=== PATIENT | male | born 1980 | race Caucasian/White ===

== ENCOUNTER 2020-01-19 00:58 | Observation (INO) | payer MEDICAID, SELFPAY ==
[2020-01-19] VITALS (18 sets, daily range): BP systolic 126–154; BP diastolic 63–89; PULSE 75–109; RESP 16–32; TEMP 36.4–37.1; O2SAT 94–99; BMI 71.8; BMI 274.6; BMI 73.7
--- NOTE | 2020-01-19 01:20 | ED.VIS.GEN ---
History of Present Illness Chief Complaint: Lower Extremity Injury Informant: Patient Onset: Days - 1-2 Context: Gradual Onset Timing: Continuous Quality: swollen, red Location: LLE Current Severity: Severe Maximum Severity: Severe Worsened by: nothing Relieved by: nothing Associated Symptoms: fever 104 2d ago. drainage of pus from buttock. no pain. Narrative: Patient has a history of lymphedema, thinks he has cellulitis in his left leg, has had this before and needed IV antibiotics. Called primary doctor's office yesterday and was prescribed clindamycin over the phone without being seen, has had 2 doses, but redness and swelling continue to worsen and spread up the leg, so they present out of concern for the need of IV antibiotics. Did have a fever once but none since then 2 days ago. - Past Medical History (1) Lymphedema Status: Chronic Past Medical History - Allergies and Home Meds Allergies/Adverse Reactions: Allergies Penicillins [PCN] Allergy (Verified 01/19/20 01:03) Rash morphine Adverse Reaction (Verified 01/19/20 01:03) PT UNSURE OF REACTION Primary Care Physician: Rojelio Grady MD [Primary Care Provider] - Lives: Spouse/ Significant Other Review of Systems General: Reports: Fever - resolved; see HPI. Denies: Chills, Sweats Eyes: Denies: Visual changes - bilaterally, Diplopia ENT: Denies: Rhinorrhea, Sore throat Cardiovascular: Denies: Chest pain, Palpitations Respiratory: Denies: Dyspnea, Cough, Dyspnea on exertion Gastrointestinal: Denies: Abdominal pain, Nausea, Vomiting, Diarrhea, Melena, Hematochezia Genitourinary: Denies: Dysuria, Hematuria, Frequency Musculoskeletal: Reports: Swelling. Denies: Back pain, Extremity Pain Skin: Reports: Rash, Wounds Neurological: Denies: Headache, Weakness, Numbness Physical Exam Vital Signs/Narrative: Vital Signs Temp Pulse Resp BP Pulse Ox 01/19/20 00:59 97.6 F L 106 H 32 H 139/77 H 98 Inital Vital Signs reviewed: Yes General: Well nourished, Well developed, Obese - morbidly, No Acute Distress Head: Normocephalic, Atraumatic Eyes: Perrl, EOMI ENT: Moist mucous membranes, No rhinorrhea Neck: Supple, Nontender Cardiovascular: Regular rate, Regular rhythm, No murmurs Respiratory: No distress, CTA bilaterally, Chest nontender Abdomen: Soft, Nontender, Nondistended, Normal bowel sounds Back: Nontender, Normal Inspection - Except for punctate area at cleft of upper buttocks where there is a scant amount of purulent drainage expressible. No tenderness or erythema. Extremities: Tenderness - Throughout erythematous areas left lower extremity, relatively mild, Edema - Both lower extremities, worse on the left Skin: Normal color, Rash - Diffuse edema with warm blanching erythema throughout left lower extremity, worse in the lower leg than in the thigh but present there to, with tenderness in the calf superficially. Neurological: Alert, Oriented x3, Cranial nerves II-XII grossly intact, Normal Strength, Normal Sensation, Normal Gait Psychological: Normal affect, Normal Mood Diagnostic/Tx/Re-eval 01/19/20 01:26 Xray Tibia [Tibia & Fibula 2 Views] [RAD] Stat --on my interpretation (ED physician), no sign of subcutaneous emphysema or bony abnormality. Laboratory Results 01/19/20 01/19/20 01/19/20 02:00 02:00 02:00 WBC 12.8 H RBC 4.29 L Hgb 13.1 Hct 38.3 L MCV 89.3 MCH 30.5 MCHC 34.2 RDW Std Deviation 46.3 H RDW Coeff of Dionna 14.3 Plt Count 220 MPV 9.7 Immature Gran % (Auto) 1.000 H Neut % (Auto) 73.5 H Lymph % (Auto) 18.0 L [place] % (Auto) 6.2 Eos % (Auto) 0.9 Baso % (Auto) 0.4 Absolute Neuts (auto) 9.4 H Absolute Lymphs (auto) 2.31 Nucleated RBC % 0 Sodium 135 L Potassium 3.1 L Chloride 98 Carbon Dioxide 32.0 Anion Gap 5 BUN 9 Creatinine 0.81 Estim Creat Clear Calc 150.32 Est GFR (MDRD) Af Amer 136 Est GFR (MDRD) Non-Af 112 BUN/Creatinine Ratio 11.1 Glucose 171 H Lactic Acid 1.9 Calcium 8.7 - Medical Decision Making Clinically patient is not septic, although he meets criteria because of vital signs initially. However the patient is morbidly obese, and walked up the hill prior to getting triaged and vital signs. These were repeated and improved, the only ones of her abnormal were his heart rate and respiratory rate. He does not feel dyspneic. His lactate is within normal limits. Potassium is a little low, he was ordered some replacement. I believe he will benefit from admission for IV antibiotics, technically has not failed outpatient therapy since he has only taken a couple doses of clindamycin, however the cellulitis is getting worse fairly quickly, on reexamination it is not necessarily worse than it was on the initial evaluation, there is no subcutaneous emphysema clinically or subcutaneous air visible on x-ray, he has full range of motion of all joints of the left lower extremity, all compartments are soft, and I do not think he has necrotizing fasciitis. Discussed with hospitalist. ED Disposition - Plan for ED Patient: Disposition: Acute Care Hospital [facility] Diagnosis: Cellulitis of left lower extremity, Lymphedema, Abscess of lower back, Sepsis, Hypokalemia Referrals: Rojelio Grady MD [Primary Care Provider] -
--- NOTE | 2020-01-19 01:26 | RAD_ITS ---
STUDY: X-RAY - LEFT TIBIA AND FIBULA REASON FOR EXAM: Male, 39 years old. C/O PAIN TO LLE, EDEMA WORSENING AND CELLULITIS TECHNIQUE: 4 view(s) of the tibia and fibula were obtained. COMPARISON: None. FINDINGS: Normal visualized tibia. Normal visualized fibula. There is nonspecific soft tissue swelling. RAD/Tibia & Fibula 2 Views IMPRESSION: No demonstrated fracture, dislocation, or destructive osseous lesion. Electronically Signed: Morteza Hugo MD at 3:02 EDT , Service support ,
[2020-01-19 02:09] LABS: Absolute Lymphocyte Count 2.31 X10^3/uL (0.83-4.51); Absolute Neutrophil Count 9.4 X10^3/uL (2.0-7.7); Basophil# 0.05 X10^3/uL; Basophil% 0.4 % (0-1); Eosinophil# 0.11 X10^3/uL; Eosinophils% 0.9 % (0-5); Hematocrit 38.3 % (40-54); Hemoglobin 13.1 g/dL (13.0-16.5); Lymphocyte # 2.31 X10^3/ul (4.0); Mean Corp Hgb Conc 34.2 g/dL (32-36); Mean Corpuscular Hgb 30.5 pg (27.0-32.0); Mean Corpuscular Volume 89.3 fL (80-94); Mean Platelet Vol. 9.7 fl (6.2-12.0); Monocyte% 6.2 % (0-10); NRBC Flagged by Analyzer 0 % (0-5); Neutrophil # 9.44 X10^3/uL (2.7-7.7); Neutrophil % 73.5 % (47-70); Platelet Count 220 K/mm3 (150-450); RBC Distribution Width CV 14.3 % (11.6-14.6); RBC Distribution Width SD 46.3 fl (35.1-43.9); Red Blood Count 4.29 M/mm3 (4.6-6.2); White Blood Count 12.8 K/mm3 (4.4-11.0)
[2020-01-19 02:22] LABS: Anion Gap 5 (5-15); BUN 9 mg/dL (7-18); BUN/Creat Ratio 11.1 RATIO (10-20); Calcium,Total 8.7 mg/dL (8.5-10.1); Chloride 98 mmol/L (98-107); Creatinine, Serum 0.81 mg/dL (0.70-1.30); EST Glomerular Filtration Rate 112 mL/min (>60); Est Glom Filt Rate - Afr Amer 136 mL/min (>60); Estimated Creatinine Clearance 150.32 ml/min; Glucose 171 mg/dL (74-106); Potassium 3.1 mmol/L (3.5-5.1); Sodium Level 135 mmol/L (136-145)
[2020-01-19 02:31] LABS: Lactic Acid 1.9 mmol/L (0.4-1.9)
--- NOTE | 2020-01-19 02:40 | HP.PCM_ITS ---
History of Present Illness Date of Admission: 01/19/20 Chief Complaint: redness, pain and swelling of LLE The patient is a 39 year old M with a PMH of super morbid obesity and hypertension as well as bipolar disorder. He was admitted through the ED on 01/19/2020 with a complaint of left lower extremity swelling, redness and pain which has been going on for about a week. 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 He noticed that his leg was getting red and more swollen was also very tender. He also had an associated fever which peaked at 104 Fahrenheit. He went to see his PCP 2 days ago and was started on oral clindamycin. He has taken medication for 2 days. However symptoms have not improved so he decided to come into the ED today. He admits to previous episodes of cellulitis similar to this. He denies any shortness of breath, chest pain, nausea vomiting and has has not had any fever since his temperature spiked to 104 Fahrenheit 2 days ago. In the ED, vitals showed temperature of 98.7 Fahrenheit with pulse rate of 106 which trended down to 87 and respiratory rate of 24. Blood pressure is 135/77. X-ray of the left lower extremity showed no demonstrated fracture, dislocation or destructive osseous lesion. He has been admitted to be managed for sepsis due to cellulitis of the left lower extremity. [] Past Medical History Past Medical History (Chronic Problems): Chronic Problems Lymphedema (Chronic) Allergies Penicillins [PCN] Allergy (Verified 01/19/20 01:03) Rash morphine Adverse Reaction (Verified 01/19/20 01:03) PT UNSURE OF REACTION Home Medications: Ambulatory Orders Medication Instructions Recorded Albuterol Sulfate [Albuterol 2 puff IH PRN PRN 01/19/20 Sulfate HFA] Aripiprazole 30 mg PO DAILY 01/19/20 Clindamycin [Cleocin] 300 mg PO 4X/DAY 01/19/20 Furosemide [Lasix] 40 mg PO BID 01/19/20 Gabapentin [Neurontin] 800 mg PO TIDCM 01/19/20 Hydrochlorothiazide [Hctz] 25 mg PO DAILY 01/19/20 Loratadine 10 mg PO DAILY 01/19/20 Losartan Potassium [Cozaar] 100 mg PO DAILY 01/19/20 Metoprolol Tartrate 50 mg PO DAILY 01/19/20 Naproxen 500 mg PO BID 01/19/20 Omeprazole 40 mg PO DAILY 01/19/20 Potassium Citrate [Potassium 20 meq PO DAILY 01/19/20 Citrate ER] Sertraline HCl [Zoloft] 150 mg PO DAILY 01/19/20 Surgical History: no surgical history Psychiatric History: Bipolar, Depression Lives: Spouse/ Significant Other Smoking Status: Heavy Smoker (>10/day) Tobacco Use: Cigarettes Alcohol: Occasional Drugs: None - *Family History Maternal History Items: No pertinent history Paternal History Items: No pertinent history Review of Systems Constitutional: Reports: Chills, Fever, Weight Change. Denies: Anorexia, Malaise, Weakness, Fatigue Eyes: Denies: Blurred vision HEENT: Denies: Head Aches, Sinus Congestion, Sinus Drainage Cardiovascular: Reports: Edema. Denies: Chest Pain, Chest Pressure, Chest Tightness, Palpitations Respiratory: Denies: Cough, Shortness of breath at rest, Sputum production Gastrointestinal: Denies: Abdominal Pain, Nausea, Vomiting Genitourinary: Denies: Dysuria Musculoskeletal: Reports: Leg Pain. Denies: Joint Pain, Joint Tenderness Skin: Reports: Skin Changes, Wounds. Denies: Dryness, Jaundice, Lesions, Rash Neurological: Denies: Numbness, Tingling, Focal weakness Psychiatric: Denies: Anxiety, Depression, Homicidal Ideations, Suicidal Ideations Hematologic/ Lymphatic: Denies: Easy Bruising, Easy Bleeding VTE Information - Inpt Only VTE Present on Admission: No VTE Pharm Prophylaxis ordered?: Yes Patient Problems: Active and Suspected Problems Cellulitis of left lower extremity (Acute) Abscess of lower back (Acute) Sepsis (Acute) Hypokalemia (Acute) - Physical Exam Vitals/I&O's: Vital Signs Temp Pulse Resp BP Pulse Ox 97.6 F L 106 H 32 H 139/77 H 98 01/19/20 02:08 01/19/20 02:08 01/19/20 02:08 01/19/20 02:08 01/19/20 02:08 Oxygen Delivery Method Room Air Weight: 590 lb 9.894 oz Body Mass Index (BMI) 71.8 General: Alert, Oriented x3, Cooperative, - - super morbid obesity HEENT: Atraumatic, PERRLA, EOMI, Normocephalic Oral: Dry Mucosa Neck: Supple, No JVD, Negative Carotid Bruits Lungs: Clear to auscultation, Normal air movement, No rhonchi, No wheeze, No rales Cardiovascular: Regular rate, Regular Rhythm, Normal S1, Normal S2, No murmurs Abdomen: Bowel Sounds Present, Soft, Non Tender, Non-Distended, Obese Extremities: No clubbing, No cyanosis, Capillary Refill Less than 3 Seconds, Edema Skin: - - RLE erythematous, edematous and tender. Erythema extends from foot up to midthigh, with healing superficial ulcers over anterior and inner left thigh. Musculoskeletal: Tenderness Lymphatic: No Cervical, Supraclavicular, or Inguinal Adenopathy Neurological: Cranial nerves II-XII grossly intact, Neuro grossly intact, Motor Exam 5/5 strength throughout Psych/Mental Status: Normal Affect, Appropriate, Alert and oriented to time, place, person, mood and affect Laboratory Results 01/19/20 02:00: WBC 12.8 H, RBC 4.29 L, Hgb 13.1, Hct 38.3 L, MCV 89.3, MCH 30.5, MCHC 34.2, RDW Std Deviation 46.3 H, RDW Coeff of Dionna 14.3, Plt Count 220, MPV 9.7, Immature Gran % (Auto) 1.000 H, Neut % (Auto) 73.5 H, Lymph % (Auto) 18.0 L, [place] % (Auto) 6.2, Eos % (Auto) 0.9, Baso % (Auto) 0.4, Absolute Neuts (auto) 9.4 H, Absolute Lymphs (auto) 2.31, Nucleated RBC % 0 01/19/20 02:00: Sodium 135 L, Potassium 3.1 L, Chloride 98, Carbon Dioxide 32.0, Anion Gap 5, BUN 9, Creatinine 0.81, Estim Creat Clear Calc 150.32, Est GFR (MDRD) Af Amer 136, Est GFR (MDRD) Non-Af 112, BUN/Creatinine Ratio 11.1, Glucose 171 H, Calcium 8.7 01/19/20 02:00: Lactic Acid 1.9 Diagnostic Data Tibia/Fibula X-Ray 01/19/20 01:26 IMPRESSION: No demonstrated fracture, dislocation, or destructive osseous lesion. Electronically Signed: Morteza Hugo MD at 3:02 EDT , Service support , Assessment/Plan All Active Problems Cellulitis of left lower extremity (Acute) Abscess of lower back (Acute) Sepsis (Acute) Hypokalemia (Acute) 39 y/o admitted with a complaint of LLE redness, swelling and pain 1. Sepsis due to LLE cellulitis * admit to PCU with telemetry * SIRS criteria- 2/4 (leucocytosis and tachypnea). was initially tachycardic, but this trended down at time of review * xray of LLE was negative for any fracture, dislocation or destructive osseous lesion * lactic acid was 1.9 * start IV clindamycin- allergic to penicillins * get Duplex of LLE to r/o DVT * PO tylenol for pain * PT/OT consult * fall precautions * 2. Hypokalemia: K is 3.1. Will replace and monitor 3.Bening essential hypertension: on losartan, metoprolol adn HCTZ 4. Chronic lymphedema: on furosemide 5. history of bipolar disorder: on apripiprazole and sertraline DVT prophylaxis: lovenox Code status: full code. * Patient counseled extensively about different types of CODE STATUS including full code, DNR CCA and DNR CCA. Patient elects to be full code. * Total [id number] time 16 minutes. Inpatient E&M: 80545 Init Hosp L3 Procedures: 05701 Advncd Care Plan 30 Min
[2020-01-19 05:30] LABS: Absolute Lymphocyte Count 2.55 X10^3/uL (0.83-4.51); Absolute Neutrophil Count 9.2 X10^3/uL (2.0-7.7); Basophil# 0.07 X10^3/uL; Basophil% 0.5 % (0-1); Eosinophil# 0.13 X10^3/uL; Hematocrit 36.8 % (40-54); Hemoglobin 12.1 g/dL (13.0-16.5); Lymphocyte # 2.55 X10^3/ul (4.0); Lymphocyte % 19.9 % (19-41); Mean Corp Hgb Conc 32.9 g/dL (32-36); Mean Corpuscular Hgb 29.9 pg (27.0-32.0); Mean Corpuscular Volume 90.9 fL (80-94); Mean Platelet Vol. 9.7 fl (6.2-12.0); Monocyte# 0.77 X10^3/uL; NRBC Flagged by Analyzer 0 % (0-5); Neutrophil % 71.8 % (47-70); Platelet Count 205 K/mm3 (150-450); RBC Distribution Width CV 14.5 % (11.6-14.6); RBC Distribution Width SD 48.3 fl (35.1-43.9); Red Blood Count 4.05 M/mm3 (4.6-6.2); White Blood Count 12.8 K/mm3 (4.4-11.0)
[2020-01-19 05:45] LABS: Anion Gap 7 (5-15); BUN 8 mg/dL (7-18); Calcium,Total 8.2 mg/dL (8.5-10.1); Chloride 101 mmol/L (98-107); Creatinine, Serum 0.72 mg/dL (0.70-1.30); EST Glomerular Filtration Rate 128 mL/min (>60); Est Glom Filt Rate - Afr Amer 155 mL/min (>60); Estimated Creatinine Clearance 169.11 ml/min; Glucose 139 mg/dL (74-106); Potassium 3.3 mmol/L (3.5-5.1); Sodium Level 135 mmol/L (136-145)
--- NOTE | 2020-01-19 07:00 | VDLE_ITS ---
Reason For Study: pain Procedure LEFT Exam performed portable in patient room. GSV is normal. The exam was abbreviated due to the COVID 19 CFV is compressible, spontaneous, phasic, protocol. competent, and demonstrates normal The exam was of fair technical quality due augmentation. to pt body habitus.. FV is compressible, spontaneous, phasic, Pt is 6'4 605 lbs. competent and demonstrates normal A preliminary report was called and/or faxed augmentation. to PCU digital marketing specialist. POP V is compressible, spontaneous, phasic, competent and demonstrates normal augmentation. T/P Trunk is compressible. PTV is compressible. LT PerV is compressible. Interpretation Summary There is no evidence of left lower extremity deep vein thrombosis. Left great saphenous vein appears patent and compressible segmentally. Abbreviated COVID 19 protocol Ordering Physician: Alivia Travis Performed By: Enrike Lundberg RVT
[2020-01-19] MEDS: Furosemide 40 MG Tablet PO ×2 (10:01→16:55)
[2020-01-19] MEDS: hydroCHLOROthiazide 25 MG Tablet PO (10:01)
[2020-01-19] MEDS: Losartan Potassium 100 MG Tablet PO (10:01)
[2020-01-19] MEDS: Pantoprazole Sodium 40 MG Tablet PO (10:01)
[2020-01-19] MEDS: Gabapentin 800 MG Tablet PO ×3 (10:02→16:55)
[2020-01-19] MEDS: ARIPiprazole 10 MG Tablet 30 MG PO (10:02)
[2020-01-19] MEDS: Loratadine 10 MG Tablet PO (10:02)
[2020-01-19] MEDS: Sertraline 50 MG Tablet 150 MG PO (10:02)
[2020-01-19] MEDS: Naproxen 500 MG Tablet PO ×2 (10:02→16:55)
[2020-01-19] MEDS: Enoxaparin 40 MG/0.4 ML Syringe SC (10:06)
[2020-01-19] MEDS: 0.9% Saline Lock 10 ML Syringe IV (20:41)
[2020-01-19] MEDS: Metoprolol(XL)Succ 50 MG Tablet PO (20:42)
[2020-01-20 02:51] VITALS: BP 141/73; PULSE 87; RESP 18; TEMP 36.4; O2SAT 97
[2020-01-20 03:00] VITALS: PULSE 82
[2020-01-20] MEDS: 0.9% Saline Lock 10 ML Syringe IV (05:07)
[2020-01-20 06:16] LABS: Absolute Lymphocyte Count 2.79 X10^3/uL (0.83-4.51); Absolute Neutrophil Count 5.5 X10^3/uL (2.0-7.7); Basophil# 0.05 X10^3/uL; Basophil% 0.5 % (0-1); Eosinophil# 0.15 X10^3/uL; Eosinophils% 1.6 % (0-5); Hematocrit 38.7 % (40-54); Hemoglobin 12.5 g/dL (13.0-16.5); Lymphocyte # 2.79 X10^3/ul (4.0); Lymphocyte % 30.4 % (19-41); Mean Corp Hgb Conc 32.3 g/dL (32-36); Mean Corpuscular Hgb 29.8 pg (27.0-32.0); Mean Corpuscular Volume 92.1 fL (80-94); Mean Platelet Vol. 9.2 fl (6.2-12.0); Monocyte# 0.61 X10^3/uL; Monocyte% 6.6 % (0-10); NRBC Flagged by Analyzer 0 % (0-5); Neutrophil # 5.46 X10^3/uL (2.7-7.7); Neutrophil % 59.6 % (47-70); Platelet Count 235 K/mm3 (150-450); RBC Distribution Width CV 14.9 % (11.6-14.6); White Blood Count 9.2 K/mm3 (4.4-11.0)
[2020-01-20 06:46] LABS: Anion Gap 3 (5-15); BUN 9 mg/dL (7-18); BUN/Creat Ratio 10.4 RATIO (10-20); Calcium,Total 8.9 mg/dL (8.5-10.1); Chloride 101 mmol/L (98-107); Creatinine, Serum 0.86 mg/dL (0.70-1.30); EST Glomerular Filtration Rate 105 mL/min (>60); Est Glom Filt Rate - Afr Amer 127 mL/min (>60); Estimated Creatinine Clearance 141.58 ml/min; Glucose 128 mg/dL (74-106); Magnesium 2.2 mg/dL (1.6-2.6); Potassium 3.7 mmol/L (3.5-5.1); Sodium Level 136 mmol/L (136-145)
[2020-01-20 07:45] VITALS: O2SAT 97
[2020-01-20 07:50] VITALS: PULSE 85
[2020-01-20 08:20] VITALS: BP 142/86; PULSE 82; RESP 20; TEMP 36.4; O2SAT 94
[2020-01-20] MEDS: Sertraline 50 MG Tablet 150 MG PO (08:25)
[2020-01-20] MEDS: ARIPiprazole 10 MG Tablet 30 MG PO (08:26)
[2020-01-20] MEDS: Gabapentin 800 MG Tablet PO (08:26)
[2020-01-20] MEDS: Losartan Potassium 100 MG Tablet PO (08:26)
[2020-01-20] MEDS: Pantoprazole Sodium 40 MG Tablet PO (08:27)
[2020-01-20] MEDS: Loratadine 10 MG Tablet PO (08:27)
[2020-01-20] MEDS: hydroCHLOROthiazide 25 MG Tablet PO (08:27)
[2020-01-20] MEDS: Naproxen 500 MG Tablet PO (08:27)
[2020-01-20] MEDS: Furosemide 40 MG Tablet PO (08:27)
--- NOTE | 2020-01-20 09:10 | PCM.DC ---
- Discharge Diagnoses Current Active Problems: Current Active and Chronic Problems Lymphedema (Chronic) Cellulitis of left lower extremity (Acute) Abscess of lower back (Acute) Sepsis (Acute) Hypokalemia (Acute) You will use the following diet at home:: Calorie/Carbohydrate Controlled (specify 1200, 1400, etc) - 2200 Your food should be the consistency of: Regular Your liquids should be the consistency of: Regular/Thin Discharge Activity: Return to Normal Activity Call your doctor if you observe: Fever of 101 or Higher, Shortness of breath, Dizziness, Fainting spells, Swelling in the ankles, Chest pain, Increased palpitations (irregular heartbeat) Allergies/Adverse Reactions: Allergies Penicillins [PCN] Allergy (Verified 01/19/20 01:03) Rash morphine Adverse Reaction (Verified 01/19/20 01:03) PT UNSURE OF REACTION Medications to take at Discharge Albuterol Sulfate [Albuterol Sulfate HFA] 2 puff IH PRN PRN 01/19/20 Aripiprazole 30 mg PO DAILY 01/19/20 Clindamycin [Cleocin] 300 mg PO 4X/DAY 01/19/20 Fluticasone 0.05% [Flonase Nasal [place]] 2 spray NASAL DAILY 01/19/20 Furosemide [Lasix] 80 mg PO DAILY 01/19/20 Gabapentin [Neurontin] 800 mg PO TIDCM 01/19/20 Hydrochlorothiazide [Hctz] 25 mg PO DAILY 01/19/20 Loratadine 10 mg PO DAILY 01/19/20 Losartan Potassium [Cozaar] 100 mg PO DAILY 01/19/20 Metoprolol Tartrate 50 mg PO DAILY 01/19/20 Naproxen 500 mg PO BID 01/19/20 Omeprazole 40 mg PO DAILY 01/19/20 Potassium Citrate [Potassium Citrate ER] 20 meq PO DAILY 01/19/20 Sertraline HCl [Zoloft] 150 mg PO DAILY 01/19/20 Primary Care Physician: Rojelio Grady MD [Primary Care Provider] - Please follow up with your Primary Care Physician in: 3-5 days Test Results: Test results from this visit will be discussed in further detail at your follow-up appointment, if applicable.
--- NOTE | 2020-01-20 09:36 | PHA.DC.MR ---
Pharmacy Service has performed discharge medication reconciliation for this patient. The patient's discharge medication list was reviewed for discrepancies and discrepancies were resolved. Home Medications Albuterol Sulfate [Albuterol Sulfate HFA] 2 puff IH PRN PRN 01/19/20 Aripiprazole 30 mg PO DAILY 01/19/20 Clindamycin [Cleocin] 300 mg PO 4X/DAY 01/19/20 Fluticasone 0.05% [Flonase Nasal [place]] 2 spray NASAL DAILY 01/19/20 Furosemide [Lasix] 80 mg PO DAILY 01/19/20 Gabapentin [Neurontin] 800 mg PO TIDCM 01/19/20 Hydrochlorothiazide [Hctz] 25 mg PO DAILY 01/19/20 Loratadine 10 mg PO DAILY 01/19/20 Losartan Potassium [Cozaar] 100 mg PO DAILY 01/19/20 Metoprolol Tartrate 50 mg PO DAILY 01/19/20 Naproxen 500 mg PO BID 01/19/20 Omeprazole 40 mg PO DAILY 01/19/20 Potassium Citrate [Potassium Citrate ER] 20 meq PO DAILY 01/19/20 Sertraline HCl [Zoloft] 150 mg PO DAILY 01/19/20
--- NOTE | 2020-01-20 09:58 | CASEMGMT ---
Addendum entered by Kathy Rodriguez 01/20/20 13:51: Script for shower chair faxed to [facility] per pt request at this time. Pt is aware that shower chair may not be covered, voiced understanding. Toya HOLDEN CM Original Note: RN BEBETO assessment: Face to Face with patient for initial transition planning/care coordination assessment. RN BEBETO introduced self and role at [facility], pt voices understanding and consents to assessment at this time. Pt is sitting up on edge of bed in no distress at this time. Pt is A/Ox4 at this time and answers all questions appropriately at this time. Pt's patelance is on phone with pt while this RN BEBETO completes assessment. Care providers, pharmacy, and demographics verified at this time. Presentation: SOB for 3 weeks Admitting dx: Acute HF, bradycardia PCP: Miguel A Specialists: Pt states no current specialists. Preferred Pharmacy: [facility] Insurance: Conjur Prescription Benefit: Conjur Living Will/HPOA: Pt states no LW/HPOA and declines AD info at this time. LNOK: tanya Toth Living Arrangements: Pt states lives with sig barbie, Gaby Atwood, in 1 story apt and states no concerns at home at this time. Pt states is independent with ADL's. Transportation: Pt states drives self and states no transportation concerns at this time. DME/HHC: Pt states has a cpap thru [facility] and pt's sig other requests shower chair for pt at this time thru [facility]. Pt states no hx of HHC or SNF in the past. Pt states no concerns with going home at time of discharge. Pt states is on disability. Pt states smokes 2 packs cigarettes daily and drinks ETOH occasionally. Pt states no further concerns/needs at this time. CM to follow for any further discharge planning/needs. Advised pt to ask for CM if any further questions/concerns/needs arise, voices understanding. Pt Goal: Home Plan: Home Toya HOLDEN CM
--- NOTE | 2020-01-20 12:05 | PCM.DC.SUM ---
Discharge Date and Diagnosis Date of Admission: 01/19/20 Date of Discharge: 01/20/20 - Secondary Discharge Diagnosis Chronic Problems: Chronic Problems Lymphedema (Chronic) Hospital Course and Treatment Imaging Results: XR L Tib/fib: IMPRESSION: No demonstrated fracture, dislocation, or destructive osseous lesion. Venous Doppler: Interpretation Summary There is no evidence of left lower extremity deep vein thrombosis. Left great saphenous vein appears patent and compressible segmentally. Abbreviated COVID 19 protocol Consults: None Operations: None Procedures: None Summary of Care Provided: Per HPI: The patient is a 39 year old M with a PMH of super morbid obesity and hypertension as well as bipolar disorder. He was admitted through the ED on 01/19/2020 with a complaint of left lower extremity swelling, redness and pain which has been going on for about a week. 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 He noticed that his leg was getting red and more swollen was also very tender. He also had an associated fever which peaked at 104 Fahrenheit. He went to see his PCP 2 days ago and was started on oral clindamycin. He has taken medication for 2 days. However symptoms have not improved so he decided to come into the ED today. He admits to previous episodes of cellulitis similar to this. He denies any shortness of breath, chest pain, nausea vomiting and has has not had any fever since his temperature spiked to 104 Fahrenheit 2 days ago. In the ED, vitals showed temperature of 98.7 Fahrenheit with pulse rate of 106 which trended down to 87 and respiratory rate of 24. Blood pressure is 135/77. X-ray of the left lower extremity showed no demonstrated fracture, dislocation or destructive osseous lesion. He has been admitted to be managed for sepsis due to cellulitis of the left lower extremity. Hospital Course: 1. Sepsis secondary to left lower extremity [id number] male who is super morbidly obese with hypertension bipolar disorder presented to the ER with left lower extremity swelling, and redness as well as pain that is been going on for about a week. He had spoken to his PCP 2 days prior and had gotten clindamycin for this. He had taken a little less than 2 days worth and as it did not improve he presented to the hospital. He was septic with leukocytosis and tachypnea. A venous Doppler ultrasound was unremarkable. He had significant improvement by the next day on IV clindamycin and therefore he was discharged home at his request on his oral clindamycin. I did discuss the plan for discharge and he expressed understanding of the risks and benefits and wanted to go home. Leukocytosis had resolved from 12.8-9.2 on day of discharge and he was afebrile no longer tachypneic. He will need to follow-up with his PCP in 3 to 5 days. 2. Hypokalemia-he presented 3.1 on the day of discharge he was 3.7 after replacement. 3. Super morbid obesity, HTN, chronic lymphedema, bipolar disorder all contribute to the complexity of his care, and his home medications are evaluating continued where appropriate. - Physical Exam Vitals/I&O's: Vital Signs Temp Pulse Resp BP Pulse Ox 97.5 F L 82 20 H 142/86 H 94 01/20/20 08:20 01/20/20 08:20 01/20/20 08:20 01/20/20 08:20 01/20/20 08:20 Oxygen Delivery Method Room Air Weight: 605 lb 6.229 oz Body Mass Index (BMI) 73.7 Intake and Output for Last 24 Hours 01/18/20 01/19/20 01/20/20 23:59 23:59 23:59 Intake Total 1602 / 1602 806 / 806 Output Total 500 / 500 850 / 850 Balance 1102 / 1102 -44 / -44 General: Alert, Oriented x3, Cooperative, No apparent distress HEENT: Atraumatic, PERRLA, EOMI, Normocephalic Oral: Moist Mucosa Neck: Supple, No JVD Lungs: Clear to auscultation, Normal air movement, No rhonchi, No wheeze, No rales, Diminished Cardiovascular: Regular rate, Regular Rhythm, Normal S1, Normal S2, No murmurs Abdomen: Soft, Non Tender, Non-Distended, No Hepato-splenomegaly, Obese Extremities: Capillary Refill Less than 3 Seconds, Edema Skin: No rashes, No breakdown, - - Area on his left leg that was marked by pen is completely normal without any signs of redness Neurological: Neuro grossly intact, Sensory exam intact to light touch and pain Psych/Mental Status: Normal Affect, Appropriate Laboratory Results 01/20/20 05:50: WBC 9.2, RBC 4.20 L, Hgb 12.5 L, Hct 38.7 L, MCV 92.1, MCH 29.8, MCHC 32.3, RDW Std Deviation 50.0 H, RDW Coeff of Dionna 14.9 H, Plt Count 235, MPV 9.2, Immature Gran % (Auto) 1.300 H, Neut % (Auto) 59.6, Lymph % (Auto) 30.4, [place] % (Auto) 6.6, Eos % (Auto) 1.6, Baso % (Auto) 0.5, Absolute Neuts (auto) 5.5, Absolute Lymphs (auto) 2.79, Nucleated RBC % 0 01/20/20 05:50: Sodium 136, Potassium 3.7, Chloride 101, Carbon Dioxide 32.0, Anion Gap 3 L, BUN 9, Creatinine 0.86, Estim Creat Clear Calc 141.58, Est GFR (MDRD) Af Amer 127, Est GFR (MDRD) Non-Af 105, BUN/Creatinine Ratio 10.4, Glucose 128 H, Calcium 8.9, Magnesium 2.2 Discharge Activity: Return to Normal Activity Call your doctor if you observe: Fever of 101 or Higher, Shortness of breath, Dizziness, Fainting spells, Swelling in the ankles, Chest pain, Increased palpitations (irregular heartbeat) Home Medications: Medications to take at Discharge Albuterol Sulfate [Albuterol Sulfate HFA] 2 puff IH PRN PRN 01/19/20 Aripiprazole 30 mg PO DAILY 01/19/20 Clindamycin [Cleocin] 300 mg PO 4X/DAY 01/19/20 Fluticasone 0.05% [Flonase Nasal [place]] 2 spray NASAL DAILY 01/19/20 Furosemide [Lasix] 80 mg PO DAILY 01/19/20 Gabapentin [Neurontin] 800 mg PO TIDCM 01/19/20 Hydrochlorothiazide [Hctz] 25 mg PO DAILY 01/19/20 Loratadine 10 mg PO DAILY 01/19/20 Losartan Potassium [Cozaar] 100 mg PO DAILY 01/19/20 Metoprolol Tartrate 50 mg PO DAILY 01/19/20 Naproxen 500 mg PO BID 01/19/20 Omeprazole 40 mg PO DAILY 01/19/20 Potassium Citrate [Potassium Citrate ER] 20 meq PO DAILY 01/19/20 Sertraline HCl [Zoloft] 150 mg PO DAILY 01/19/20 Primary Care Physician: Rojelio Grady MD [Primary Care Provider] - Please follow up with your Primary Care Physician in: 3-5 days Disposition: Home Minutes spent on discharge:: 35 Patient Condition:: Stable Medical Necessity - Tobacco Use Smoking Status: Heavy Smoker (>10/day) Tobacco Use: Cigarettes Meaningful Use Info Meaningful Use Diagnoses (Choose all that apply): None applicable Inpatient E&M: [id number] [facility]osp
== END 2020-01-20 11:00 | disposition home or self-care (01) | DRG 720 ==
LOC: ED 02:42 → PCU 02:54
PROVIDERS: Admitting Provider Student in an Organized Health Care Education/Training Program; Emergency Provider Emergency Medicine; PCP Family Medicine; Visit Provider Family Medicine
DX: A41.9 Sepsis, unspecified organism (principal); L03.116 Cellulitis of left lower limb; I89.0 Lymphedema, not elsewhere classified; E66.01 Morbid (severe) obesity due to excess calories; Z68.45 Body mass index [BMI] 70 or greater, adult; L02.212 Cutaneous abscess of back [any part, except buttock and flank]; E87.6 Hypokalemia; F31.9 Bipolar disorder, unspecified; I10 Essential (primary) hypertension; Z66 Do not resuscitate; Z79.899 Other long term (current) drug therapy; F17.210 Nicotine dependence, cigarettes, uncomplicated; Z23 Encounter for immunization
CPT/HCPCS: 36415; 73590; 80048; 83605; 83735; 85025; 87040; 90471; 93971; 94002; 94660; 94762; 99218; 99285; 99406; J7050; A4216; G0378

== ENCOUNTER 2021-01-15 19:34 | Emergency (ER) | payer MEDICAID, SELFPAY ==
[2020-01-19 03:51] VITALS: BMI 73.7
[2021-01-15 19:35] VITALS: BP 169/82; PULSE 131; RESP 24; TEMP 36.4; O2SAT 97; BMI 70.6
--- NOTE | 2021-01-15 20:04 | US_ITS ---
STUDY: VENOUS DOPPLER ULTRASOUND - LEFT LOWER EXTREMITY REASON FOR EXAM: Male, 40 years old. LT LEG EDEMA X 5 DAYS TECHNIQUE: Ultrasound evaluation of the deep vein system to include desai-scale imaging and compression was performed. Desai-scale imaging and Doppler sonographic evaluation, including duplex spectral analysis and qualitative color flow sonography, was performed. Limited study due to the patient''s body habitus. COMPARISON: None. FINDINGS: Common Femoral Vein: Normal compression, spontaneity and augmentation. Normal color Doppler. Common Femoral Vein/Greater Saphenous Junction: Normal compression, spontaneity and augmentation. Normal color Doppler. Deep Femoral Vein: Normal compression, spontaneity and augmentation. Normal color Doppler. Femoral Proximal: Normal compression, spontaneity and augmentation. Normal color Doppler. Femoral Middle: Normal compression, spontaneity and augmentation. Normal color Doppler. Femoral Distal: Normal compression, spontaneity and augmentation. Normal color Doppler. Popliteal Vein: Normal compression, spontaneity and augmentation. Normal color Doppler. Posterior Tibial Vein: Normal compression, spontaneity and augmentation. Normal color Doppler. Peroneal Vein: Normal compression, spontaneity and augmentation. Normal color Doppler. US/Venous Duplex Imag/Limited/Uni IMPRESSION: Normal venous Doppler ultrasound of the lower extremity. Electronically Signed: Iggy Betancur MD at 20:33 EDT , Service support ,
--- NOTE | 2021-01-15 21:06 | EDS_ITS ---
HPI History of Present Illness Chief Complaint: Edema Informant: patient Narrative Narrative: Patient is a 40-year-old male with history of lymphedema and cellulitis presenting with swelling and redness of his left lower extremity. States is been present for about a week. Patient states he used to be on a water pill for swelling but is taken off of it. He notes that he just finished a course of clindamycin for his leg. He states his doctor was concerned he might have a DVT so he came to emergency room to be evaluated further. Patient denies associated chest pain, shortness of breath or difficulty breathing. PFSH PFSH Home Medications albuterol sulfate 2 puff IH PRN PRN 01/19/20 [History Last Taken Unknown] aripiprazole 30 mg PO DAILY 01/19/20 [History Last Taken 01/18/20 12:30 30 mg] clindamycin HCl 300 mg PO 4X/DAY 01/19/20 [History Last Taken 01/19/20 00:00 300 mg] fluticasone propionate 2 spray NASAL DAILY 01/19/20 [History Last Taken 01/18/20 12:30 2 sprays] furosemide 80 mg PO DAILY 01/19/20 [History Last Taken 01/18/20 12:30 80 mg] gabapentin 800 mg PO TIDCM 01/19/20 [History Last Taken 01/19/20 00:00 800 mg] hydrochlorothiazide 25 mg PO DAILY 01/19/20 [History Last Taken 01/18/20 12:30 25 mg] loratadine 10 mg PO DAILY 01/19/20 [History Last Taken 01/18/20 12:30 10 mg] losartan 100 mg PO DAILY 01/19/20 [History Last Taken 01/18/20 12:30 100 mg] metoprolol tartrate 50 mg PO DAILY 01/19/20 [History Last Taken 01/19/20 00:00 50 mg] naproxen 500 mg PO BID 01/19/20 [History Last Taken 01/18/20 00:00 500 mg] omeprazole 40 mg PO DAILY 01/19/20 [History Last Taken 01/18/20 12:00 40 mg] potassium citrate 20 meq PO DAILY 01/19/20 [History Last Taken 01/18/20 12:00 20 meq] sertraline 150 mg PO DAILY 01/19/20 [History Last Taken 01/18/20 12:30 150 mg] doxycycline hyclate 100 mg PO BID #20 cap 01/15/21 [Rx Last Taken Unknown] furosemide [Lasix] 20 mg PO DAILY #7 tab 01/15/21 [Rx Last Taken Unknown] Allergy/AdvReac Type Severity Reaction Status Date / Time Penicillins [PCN] Allergy Rash Verified 01/15/21 19:35 morphine AdvReac PT UNSURE Verified 01/15/21 19:35 OF REACTION Social History Smoking Status: Heavy Smoker (>10/day) ROS ROS ED Constitutional Constitutional ED: Denies chills or fever(s) Eyes Eyes: Denies change in vision ENT ENT ED: Denies rhinorrhea or sore throat Cardiovascular Cardiovascular: Denies chest pain or palpitations Respiratory/Chest Respiratory/Chest: Reports dyspnea on exertion and other Details: Dyspnea on exertion is chronic and unchanged per patient ; Denies cough or dyspnea Gastrointestinal Gastrointestinal: Denies abdominal pain or vomiting Musculoskeletal Musculoskeletal: Reports other Details: Left lower leg swelling ; Denies arthral gias or myalgias Integumentary Reports rash; Denies abscess or Abrasions Neurologic Neurologic: Denies headache(s) or weakness Psychiatric Psychiatric: Denies anxiety or depression EXAM Physical Exam Const Vital Signs: 01/15/21 19:35 01/15/21 20:30 Temperature 97.5 F L Temperature Source Temporal Pulse Rate 131 H Respiratory Rate 24 H Respiratory Effort Normal Respiratory Pattern Normal Blood Pressure 169/82 H Blood Pressure Mean 111 Pulse Ox 97 Oxygen Delivery Method Room Air Positive well nourished and obese Nutritional Appearance: obese HEENT normocephalic and atraumatic Eyes PERRL Neck full ROM and supple Neck Narrative: No JVD appreciated Chest Wall inspection of chest normal Resp normal respiratory effort and clear to auscultation bilaterally Cardio regular rhythm Rate: tachycardic GI non-tender Palpation: soft Extremity Extremity Narrative: Patient has bilateral all edema, left worse than right. Is nonpitting. 2+ bilateral DP pulses. No palpable cords General Extremety ED: Yes edema General Extremity: edema Neuro oriented x3 and moves all extremities Sensorium / Orientation: alert Psych mental status grossly normal Skin Skin Narrative: Erythema and warmth of the medial thigh. No associated fluctuance. Changes consistent with cellulitis. Image ED - Lower Extremity Diagram: 1. Erythema, warmth MDM MDM MDM Narrative Medical decision making narrative: Patient evaluated for increased swelling of his left lower extremity as well as associated erythema. He states he was concern about cellulitis as well as DVT. Venous duplex obtained does not show any DVT. Clinically patient appears to have a cellulitis. Will be switched to doxycycline. Patient is tachycardic in the emergency room. Patient attributes his tachycardia to work of walking up the hill to come to the emergency room. He is offered blood work to check his kidney function and leukocytosis. Patient states he would prefer to do his outpatient blood work that his doctors ordered. He will be started on low-dose Lasix to help with his lymphedema as well. Chart review shows that his kidney function has been normal in the past. Patient is counseled on strict return precautions. He is counseled that if he develops any fever he does have worsening symptoms after 2 days of antibiotics he should return to the emergency room for further evaluation IV antibiotics. Clinically patient does not appear fluid overloaded. He does not have crackles or JVD. Radiography Diagnostic Testing: Radiology Impression Venous Duplex 01/15/21 20:04 IMPRESSION: Normal venous Doppler ultrasound of the lower extremity. Electronically Signed: Iggy Betancur MD at 20:33 EDT , Service support , Discharge Plan Triage Chief Complaint: Edema ED Provider: Lilliam Arita Dx/Rx/DC Orders Clinical Impression: Cellulitis of left lower extremity, Lymphedema Instructions: ED Cellulitis, ED Lymphedema Prescriptions: New doxycycline hyclate 100 mg capsule 100 mg PO BID Qty: 20 RF: 0 furosemide [Lasix] 20 mg tablet 20 mg PO DAILY Qty: 7 RF: 0 No Action furosemide 40 MG tablet 80 mg PO DAILY RF: 0 sertraline 100 MG tablet 150 mg PO DAILY RF: 0 clindamycin HCl 150 MG capsule 300 mg PO 4X/DAY RF: 0 omeprazole 40 MG capsule,delayed release(DR/EC) 40 mg PO DAILY RF: 0 gabapentin 800 MG tablet 800 mg PO TIDCM RF: 0 metoprolol tartrate 50 MG tablet 50 mg PO DAILY RF: 0 hydrochlorothiazide 25 MG tablet 25 mg PO DAILY RF: 0 albuterol sulfate 90 mcg/actuation HFA aerosol inhaler 2 puff IH PRN PRN (Reason: Shortness Of Breath) RF: 0 losartan 100 MG tablet 100 mg PO DAILY RF: 0 naproxen 500 MG tablet 500 mg PO BID RF: 0 aripiprazole 30 MG tablet 30 mg PO DAILY RF: 0 potassium citrate 15 MEQ tablet extended release 20 meq PO DAILY RF: 0 loratadine 10 MG capsule 10 mg PO DAILY RF: 0 fluticasone propionate 1 SPRAY spray,suspension 2 spray NASAL DAILY RF: 0 Primary Care Provider: Rojelio Grady Referrals: Rojelio Grady MD [Primary Care Provider] - Activity Restrictions/Additional Instructions: Please follow-up with your primary care doctor this week for repeat evaluation. Please get your outpatient blood work soon as possible. Return immediately to the emergency room if you develop any fever, worsening redness or worsening symptoms. Disposition Disposition: Home, Self Care
[2021-01-15 21:43] VITALS: BP 159/75; PULSE 125; RESP 16; O2SAT 97
== END 2021-01-15 21:44 | disposition home or self-care (01) ==
PROVIDERS: Emergency Provider Emergency Medicine; PCP Family Medicine
DX: L03.116 Cellulitis of left lower limb (principal); I89.0 Lymphedema, not elsewhere classified; E66.9 Obesity, unspecified; F17.200 Nicotine dependence, unspecified, uncomplicated; Z79.899 Other long term (current) drug therapy
CPT/HCPCS: 93971; 99282